=== PATIENT | male | born 1995 | race Caucasian/White ===

== ENCOUNTER 2024-03-28 10:54 | Emergency (ER) | payer SELFPAY ==
[~2024-03-28] VITALS: Ht 182.9 cm; Wt 79.4 kg
[~2024-03-28 10:54] MED LIST: CODACE30 PO; IBUP800 PO; Norco 5-325 Ta1 EACH PO
[2024-03-28 11:16] VITALS: BP 145/103
[2024-03-28] MEDS ORDERED: Amoxicillin500 MG PO (11:17)
== END 2024-03-28 11:20 | disposition home or self-care (01) ==
LOC: ER 10:54
DX: K04.7 Periapical abscess without sinus (principal); F17.200 Nicotine dependence, unspecified, uncomplicated; Z79.899 Other long term (current) drug therapy
CPT/HCPCS: 99283